=== PATIENT | male | born 1960 | race Caucasian/White ===

== ENCOUNTER 2016-06-24 05:15 | Day surgery (SDC) | payer OTHER ==
--- NOTE | ~2016-06-24 | OP ---
Record Of Operation [facility] [address] [place]. [address] NAME: MAZIN IRENE : 64 STATUS : [facility]#: [id number] AGE: 56 ADM/REG DATE : 06/24/16 MR#: [id number] REPORT SERV DATE: 06/24/16 DICTATED BY: SERA BRICE III DATE: 06/24/16 REPORT STATUS : Draft TRANSCRIBED BY: MODL DATE: 06/24/16 DATE OF PROCEDURE: 06/24/2016 POSTOPERATIVE DIAGNOSIS: Symptomatic umbilical hernia. POSTOPERATIVE DIAGNOSIS: Symptomatic umbilical hernia. PROCEDURE: Repair of umbilical hernia. SURGEON: Sera Brice M.D. ANESTHESIA: General with intubation. COMPLICATIONS: None. ESTIMATED BLOOD LOSS: Less than 5 mL. SPECIMENS: None. DRAINS: None. LAP AND SPONGE COUNT: Correct x3. BRIEF HISTORY: This 56-year-old male, presented with a symptomatic small umbilical hernia. It was felt that repair of the hernia, was indicated. This procedure, the risks, benefits, and alternatives, including but not limited to the risk for bleeding, infection, enterotomy, injury to abdominal structure, postop small bowel obstruction, ileus, seroma formation, hematoma formation, recurrence of the hernia, and unforeseen complications including deep venous thrombosis, pulmonary embolus, myocardial infarction, stroke, pneumonia, and , were fully and completely explained to the patient prior to surgery. The expected length of recovery was explained. The fact that this would not correct his diastasis recti and the fact that it would not relieve his chronic abdominal pain of unclear etiology was explained. The patient had questions, which were answered. He understood the risks and agreed to surgery as planned. DESCRIPTION OF PROCEDURE: After being properly identified, and after discussing the risks of surgery with the patient's family again in the preoperative area, and after identifying the hernia with him in the preoperative area, the patient was taken to the operating room, and placed in the supine position on the operating room table. General anesthesia was administered. He was intubated without difficulty. The abdomen was prepped and draped sterilely in the usual fashion. After an appropriate "time-out" per [employer] standards, a small transverse incision was made along the inferior border of the navel. The incision continued through subcutaneous tissue. Using sharp dissection, the navel was elevated superiorly. Using sharp dissection, we dissected down to the fascial defect. The fascial defect was about 1 cm in size. The skin and subcutaneous tissue around the defect anteriorly was fully mobilized. The underside of the fascial defect was palpated to be Record Of Operation [facility] [id number] [place]. [address] NAME: MAZIN IRENE : 64 STATUS : [facility]#: [id number] AGE: 56 ADM/REG DATE : 06/24/16 MR#: [id number] REPORT SERV DATE: 06/24/16 DICTATED BY: SERA BRICE III DATE: 06/24/16 REPORT STATUS : Draft TRANSCRIBED BY: MODL DATE: 06/24/16 certain there was no fascia beneath this. Hemostasis was assured. The fascial edges were reapproximated with interrupted 0 Prolene sutures. The fascia came together nicely with no tension. It was felt that mesh was not required. Hemostasis was assured. The subcutaneous tissue was closed with running 3-0 chromic suture. The skin was closed with running subcuticular 4-0 Monocryl stitch. Incision was injected with 0.5% Marcaine. Dressings were applied. Anesthesia was reversed and the patient was taken to the recovery room in stable condition. He tolerated the procedure well. His family was informed the results of surgery. The patient will be discharged when stable and comfortable. His family was advised that should keep his wound clean and dry for [address] hours[address] He should not drive for three to four days after surgery or while using narcotics, that he should resume his usual medications, and that he should not perform any heavy lifting for five to six weeks. He has been asked to return in two weeks for followup or sooner if any fever, chills, wound drainage, nausea, vomiting, abdominal pain, or other problems prior to that time. He was given a prescription for Percocet 7.5 one t.i.d., #12, as needed for pain, which he was advised not to use while driving. MAURA/CARLI Sera Brice III, M.D. / [id number] CC: Claude Holder III, DO
--- NOTE | ~2016-06-24 | PREOPHP ---
PreOp History and Physical [address] [address] NAME: MAZIN IRENE : 64 STATUS : [facility] PAT#: [id number] AGE: 56 ADM/REG DATE : 06/24/16 MR#: [id number] REPORT SERV DATE: 06/24/16 DICTATED BY: SERA BRICE III DATE: 05/28/16 REPORT STATUS : Draft TRANSCRIBED BY: MODMark DATE: 05/28/16 HISTORY OF PRESENT ILLNESS: This 55-year-old male comes to the operating room for repair of a symptomatic umbilical hernia. The patient has umbilical hernia, which is chronic in nature. The patient has had no nausea, vomiting, or obstructive symptoms. He comes to the operating room now for repair of this hernia. PAST MEDICAL HISTORY: 1. Obesity. 2. Hypertension. 3. Gastroesophageal reflux disease. 4. Hyperlipidemia. 5. Arthritis. 6. Obstructive sleep apnea. PAST SURGICAL HISTORY: Includes knee surgery and tonsillectomy. FAMILY HISTORY: Positive for heart disease. SOCIAL HISTORY: The patient has a history of tobacco abuse. REVIEW OF SYSTEMS: The patient complains of fatigue and weight gain, shortness of breath, coughing, and nausea. MEDICATIONS: Ellipta, levocetirizine, lisinopril, metoprolol, montelukast, Nexium. PHYSICAL EXAMINATION: GENERAL: This is a very obese male, in no acute distress. He is alert and oriented x3. VITAL SIGNS: Blood pressure 154/80, pulse 82, temperature 98.1. HEENT: Unremarkable. Cranial nerves II through XII were normal. LUNGS: Clear. CARDIAC: Normal. ABDOMEN: Soft and nontender with no masses. EXTREMITIES: Normal with no edema. The patient has a large protuberant abdomen. He has a small umbilical hernia, which is reducible. There is a large diastasis recti. ASSESSMENT: 1. A 55-year-old male with umbilical hernia. 2. Obesity. 3. Diastasis recti, asymptomatic. 4. Chronic abdominal pain. 5. Hypertension. 6. Hyperlipidemia. 7. Arthritis. PreOp History and Physical [address] [address] NAME: MAZIN IRENE : 64 STATUS : [facility] PAT#: [id number] AGE: 56 ADM/REG DATE : 06/24/16 MR#: [id number] REPORT SERV DATE: 06/24/16 DICTATED BY: SERA BRICE III DATE: 05/28/16 REPORT STATUS : Draft TRANSCRIBED BY: CARLI DATE: 05/28/16 8. Obstructive sleep apnea. PLAN: The patient comes to the operating room now for open repair of this umbilical hernia. This procedure, the risks, benefits, and alternatives including, but not limited to the risk for bleeding, infection, enterotomy, injury to any abdominal structure, postop small-bowel obstruction with ileus, incisional hernia or recurrence of the umbilical hernia, seroma formation, hematoma formation, and unforeseen complications including deep venous thrombosis, pulmonary embolus, myocardial infarction, stroke, pneumonia, and have been fully and completely explained to the patient at length prior to surgery. The fact that this is a major operation with risk for major morbidity and mortality has been explained. The expected length of recovery has been explained. The patient has chronic lower abdominal pain. The fact that this surgery will not resolve his pain has been fully and completely explained as well. The patient's questions have been answered. He clearly understands all the risks and agrees to surgery as planned. ADDENDUM: It should be noted this patient has a large diastasis recti. I have fully explained to the patient that this surgery will not repair the diastasis recti and the repair of this is not indicated. RHFaraz/CARLI Sera Brice III, M.D. / [id number] / [id number]
[~2016-06-24 05:15] MED LIST: FISH-EPA1000 MG PO; GLUCCHONDR PO; INCRUSE ELLI62.5 MCG INH; LEVSINTAB PO; LINZESS 145 M145 MCG PO; LIPITOR20 PO; LOP25 PO; MULTIVITAMI1 PO; NEXIUM OTC PO; PRILOSEC10 MG PO; PRIN20 PO; SINGULAIR1 PO; VITC500 PO; XYZAL5 MG; ZESTORETIC PO; ZYRTEC ALLGY10 MG PO
[2016-11-04] MEDS ORDERED: BREO ELLIPTA 21 EACH INH (14:10)
[2016-11-04] MEDS ORDERED: CO Q-10200 MG PO (14:11)
[2016-11-04] MEDS ORDERED: NORV5 PO (14:11)
[2016-11-04] MEDS ORDERED: ZYRTEC ALLGY10 MG PO (14:12)
[2016-11-04] MEDS ORDERED: PRILOSEC40 MG PO (14:12)
[2016-11-04] MEDS ORDERED: HALF81 PO (14:26)
== END 2016-06-24 16:28 | disposition home or self-care (01) ==
LOC: SDC 05:15
PROVIDERS: Surgery
PROC: 0WQF0ZZ Repair Abdominal Wall, Open Approach (ICD-10-PCS; principal; 2016-06-24 06:45)
DX: K42.9 Umbilical hernia without obstruction or gangrene (principal); E66.9 Obesity, unspecified; I10 Essential (primary) hypertension; K21.9 Gastro-esophageal reflux disease without esophagitis; E78.5 Hyperlipidemia, unspecified; M19.90 Unspecified osteoarthritis, unspecified site; G47.33 Obstructive sleep apnea (adult) (pediatric); Z98.890 Other specified postprocedural states; Z87.891 Personal history of nicotine dependence; Z79.899 Other long term (current) drug therapy; Q79.59 Other congenital malformations of abdominal wall; Z88.8 Allergy status to other drugs, medicaments and biological substances
CPT/HCPCS: 71020; 80053; 85025; 87641; 93005; A9270-GY; J0330; J2250; J2405; J3010; J3370